=== PATIENT | female | born 1945 | race Caucasian/White ===

== ENCOUNTER → 2017-05-31 | Outpatient (CLI) | payer MEDICARE ==
[~2017-05-31] MED LIST: ALPRAZOLAM PO; ALPRAZOLAM0.25 MG PO; ASPIRIN81 M1 PO; ASPIRINEC PO; ATENOLOL PO; AVANDIA PO; COUMADIN PO; ECOTRIN81 M1 PO; GLUCOTROL PO; GLUCOTROL XL10 MG PO; JANUVIA; K-DUR20 ME1 PO; LAVAZA; LISINOPRIL-HCTZ1 T15 PO; LOPRESSOR PO; LORAZEPAM1 MG PO; METFORMIN HCL500 M1 PO; MEVACOR PO; NASONEX17 GM; NEURONTIN PO; OMACOR; PAXIL PO; PRAVACHOL80 MG PO; PRAVASTATIN SOD80 MG PO; SINGULAIR PO; SYNTHROID PO; SYNTHROID0.1 MG PO; VITAMIN D1000 UNIT PO; VITAMIN D31000 UNI1 PO; WARFARIN SODIUM6 MG PO; WELLBUTRIN XL150 M1 PO; ZESTORETIC 10/11 TAB PO; ZOLOFT PO; ZOLOFT100 MG PO
--- NOTE | ~2017-05-31 | MY11 ---
[facility] A Service of [facility] RADIOLOGY TEXT RESULTS PATIENT: FOSTER MOLINA LOCATION: [facility] : 41 UNIT #: [id number] AGE: [address]: SHANNAN CHILDS DO SEX: F ORDER DR: [id number] [place] [id number] MR#: [id number] Acc #: [id number] NAME: FOSTER MOLINA : 1945 SEX: F STUDY DATE/TIME: 05/31/2017 9:08 UNIT: [facility] ROOM: STUDY DESCRIPTION: MY Mammogram Screening Dig Rex Attending Physician: Shannan Childs D.O. Referring Physician: Shannan Childs D.O. Ordering Physician: Shannan Childs D.O. Primary Care Physician: Shannan Childs D.O. MEDICAL IMAGING REPORT This report is preliminary unless electronic signature is present. EXAM Digital screening mammogram, 05/31/2017, [facility]. HISTORY 72-year-old woman; positive family history, mother postmenopausal. Annual screening. COMPARISON Comparison mammograms date to 09/13/2008, with most recent 05/21/2016. FINDINGS Digital imaging of each breast was completed utilizing a two-view examination of each breast in craniocaudal and mediolateral-oblique projections. Review and interpretation of digital mammograms include a second review in conjunction with FDA-approved CAD device. There is a normal parenchymal presentation bilaterally consistent with the patient's age. There are no breast masses imaged and no parenchymal asymmetry is visualized. There are no suspicious microcalcifications and I see no focal architectural disturbance. NOTE: Breast parenchyma is fatty replaced IMPRESSION Negative screening digital mammogram. One-year followup recommended. Patients over the age of 40 are entered into a reminder system with target due date for the next mammogram. A result letter will also be sent to the patient. BIRADS: 1 Negative [facility] A Service of [facility] RADIOLOGY TEXT RESULTS PATIENT: FOSTER MOLINA LOCATION: [facility] : 41 UNIT #: [id number] AGE: [address]: SHANNAN CHILDS DO SEX: F ORDER DR: Dictated by... Ryder Lozano M.D. THIS IS AN ELECTRONICALLY VERIFIED REPORT Ryder Lozano M.D. at 05/31/2017 1:39 PM Regino TD: 05/31/2017 13:15 JOB #: [id number] MEDICAL IMAGING REPORT Page 1 of 1
== END | disposition home or self-care (01) ==
LOC: SMAM 08:12
DX: Z12.31 Encounter for screening mammogram for malignant neoplasm of breast (principal); Z80.3 Family history of malignant neoplasm of breast
CPT/HCPCS: G0202